=== PATIENT | male | born 1980 | race Caucasian/White ===

== ENCOUNTER 2016-09-03 09:49 | Emergency (ER) | payer OTHER ==
--- NOTE | ~2016-09-03 | CR63 ---
[facility]. [facility] A Service of [facility] & [facility] / [facility] RADIOLOGY TEXT RESULTS PATIENT: CHRISTIANO GRULLON LOCATION: SED : 76 UNIT #: [id number] AGE: [address]: ESEQUIEL BENAVIDEZ SEX: M ORDER DR: [id number] [address] [address] [id number] MR#: [id number] Acc #: [id number] NAME: CHRISTIANO GRULLON. : 1980 SEX: M STUDY DATE/TIME: 09/03/2016 UNIT: SED ROOM: STUDY DESCRIPTION: CR Chest 2 View Attending Physician: Esequiel Benavidez D.O. Ordering Physician: Esequiel Chaudhari D.O. Primary Care Physician: No Primary Care Physician MEDICAL IMAGING REPORT This report is preliminary unless electronic signature is present. EXAM Chest 2 views 09/03/2016 1033 hours. HISTORY 36-year-old man with cough with bloody sputum for 2 months. He states he lives in a basement with presence of mold. Hypertension, noncompliant with medication for [address] chest 05/11/2015 and chest x-ray 06/07/2014. FINDINGS Upright PA and lateral views of the chest demonstrate normal cardiac, mediastinal and hilar contours. There is mild bilateral interstitial prominence at the bases on the PA view, not well seen on the lateral view. This could simply represent vascular crowding. The upper lungs are clear, and there are no effusions. Note is made of an abnormal appearance to the proximal humeri with subarticular lucent and sclerotic change raising question of avascular necrosis. This is not significantly changed from 06/07/2014. Correlate with any history of shoulder pain. IMPRESSION 1. There is interstitial prominence suggested at the lung bases on the PA view, not confirmed on the lateral view. The markings do appear increased from previous chest film of 06/07/2014. An element of mild interstitial change cannot be excluded. The upper lungs are clear, and there are no effusions. 2. Sclerotic appearance at the proximal humeri bilaterally raising question of underlying avascular necrosis. Correlate with any history of shoulder pain. [facility]. [facility] A Service of [facility] & [facility] / [facility] RADIOLOGY TEXT RESULTS PATIENT: CHRISTIANO GRULLON [place] [facility] [place] [birth year] [place]IT #: [id number] AGE: [address]: ESEQUIEL BENAVIDEZ SEX: M ORDER DR: Dictated by... Ann Yost M.D. THIS IS AN ELECTRONICALLY VERIFIED REPORT Ann Yost M.D. at 09/03/2016 2:27 PM Stephen TD: 09/03/2016 12:00 JOB #: [id number] MEDICAL IMAGING REPORT Page 1 of 1
[~2016-09-03 09:49] MED LIST: HYDROCODON-ACE1 EAC5 PO; KEFLEX500 M1 PO; LISINOPRIL PO; LISINOPRIL10 MG PO; MOTRIN600 M1 PO; NORCO 10-325 TA1 TAB; OMEPRAZOLE20 M2 PO; PHENERGAN DM1 ML PO; TAMIFLU75 M1 PO; VICODIN PO; VOLTAREN75 MG PO
[2016-09-03] MEDS ORDERED: HYDROCODONE PO (09:54)
== END 2016-09-03 11:17 | disposition home or self-care (01) ==
LOC: SED 09:49
DX: J18.9 Pneumonia, unspecified organism (principal); I10 Essential (primary) hypertension; F17.210 Nicotine dependence, cigarettes, uncomplicated; Z88.1 Allergy status to other antibiotic agents
CPT/HCPCS: 71020; 94640; 99283